=== PATIENT | female | born 1955 | race Asian ===

== ENCOUNTER 2021-06-07 09:10 | Outpatient (CLI) | payer BC ==
[~2021-06-07 09:10] MED LIST: ATEN50TA PO; HYDR12.55; HYDROCHLORTHIAZIDE; LISI10TA; SIMV-46 PO; VIT D
== END 2021-06-07 19:54 | disposition home or self-care (01) ==
LOC: SMA 09:10
PROVIDERS: ATTEND Family Medicine
DX: Z12.31 Encounter for screening mammogram for malignant neoplasm of breast (principal)
CPT/HCPCS: 77067

== ENCOUNTER 2022-06-20 09:02 | Outpatient (CLI) | payer OTHER, BC | END 2022-06-20 20:09 | disposition home or self-care (01) | LOC: SMA 09:02 | PROVIDERS: ATTEND Family Medicine | DX: Z12.31 Encounter for screening mammogram for malignant neoplasm of breast (principal) | CPT/HCPCS: 77067 ==

== ENCOUNTER 2023-07-03 08:55 | Outpatient (CLI) | payer OTHER, BC | END 2023-07-03 18:37 | disposition home or self-care (01) | LOC: SMA 08:55 | PROVIDERS: ATTEND Family Medicine | DX: Z12.31 Encounter for screening mammogram for malignant neoplasm of breast (principal) | CPT/HCPCS: 77067 ==